=== PATIENT | female | born 1955 | race Caucasian/White ===

== ENCOUNTER → 2022-04-07 | Outpatient (CLI) | payer MEDICARE | END | disposition home or self-care (01) | LOC: SHCH 10:53 | PROVIDERS: ATTEND Internal Medicine | DX: I11.9 Hypertensive heart disease without heart failure (principal); J45.909 Unspecified asthma, uncomplicated; E03.9 Hypothyroidism, unspecified; F32.A Depression, unspecified; M79.7 Fibromyalgia; Z98.82 Breast implant status | CPT/HCPCS: 93306 ==

== ENCOUNTER 2023-05-05 08:22 | Day surgery (SDC) | payer MEDICARE ==
[2023-05-02 14:53] VITALS: BP 121/44; PULSE 71; RESP 18
[~2023-05-05] VITALS: Ht 165.1 cm; Wt 90.9 kg
[2023-05-05] VITALS (9 sets, daily range): BP systolic 109–140; BP diastolic 53–73; PULSE 75–85; RESP 14–19
[~2023-05-05 08:22] MED LIST: 0.9%NACL 1000ML 1,000 ML IV ONE; CELE200C PO; DEXL60CA3 PO; DULO60CA64 PO; HYDR25TA PO; LISI10TA24 PO; METO-409 PO; PREG150C47 PO; RIZA-5 SL; TRAM50TA4 PO
[2023-05-05] MEDS ORDERED: SEMA0.253 SQ (11:40)
[2023-05-05] MEDS ORDERED: PROPOFOL 10 MG/ML 20ML VIAL IV ONE (12:33)
[2023-05-05] MEDS ORDERED: LIDOCAINE PF 100MG/5ML (2%) SYRINGE 5ML ONE (12:34)
== END 2023-05-05 13:55 | disposition home or self-care (01) ==
LOC: ENDO 08:22 → DAH 08:22 → ENDO 13:55
PROVIDERS: ATTEND Internal Medicine Gastroenterology
DX: Z12.11 Encounter for screening for malignant neoplasm of colon (principal); K57.30 Diverticulosis of large intestine without perforation or abscess without bleeding; M79.7 Fibromyalgia; E03.9 Hypothyroidism, unspecified; K21.9 Gastro-esophageal reflux disease without esophagitis; F41.9 Anxiety disorder, unspecified; F32.A Depression, unspecified; I10 Essential (primary) hypertension; E66.9 Obesity, unspecified; Z90.49 Acquired absence of other specified parts of digestive tract; Z98.890 Other specified postprocedural states; Z79.899 Other long term (current) drug therapy; Z68.33 Body mass index [BMI] 33.0-33.9, adult; Z72.89 Other problems related to lifestyle
CPT/HCPCS: 82948 ×2; J7030 ×2; J2001; J2704; A4620; G0121; A4215 ×2; A4223; A7002; A4222; A4221; A4663; A4606; 45378; J3490

== ENCOUNTER → 2024-01-30 | Outpatient (CLI) | payer MEDICARE ==
[~2024-01-30] MED LIST changes: -0.9%NACL 1000ML 1,000 ML IV ONE; -CELE200C PO; +CELE200C3 PO; +IOHEXOL 350 MG/ML 100ML INFUS..BTL IV ONE; +SEMA0.253 SQ
== END | disposition home or self-care (01) ==
LOC: RAH 10:52
PROVIDERS: ATTEND Student in an Organized Health Care Education/Training Program
DX: R07.9 Chest pain, unspecified (principal); M47.815 Spondylosis without myelopathy or radiculopathy, thoracolumbar region; Z98.82 Breast implant status
CPT/HCPCS: 75574; Q9967

== ENCOUNTER → 2024-01-30 | Outpatient (CLI) | payer MEDICARE ==
[~2024-01-30] MED LIST changes: -IOHEXOL 350 MG/ML 100ML INFUS..BTL IV ONE
[2024-01-30 12:13] LABS: CHOLESTEROL 144 mg/dL (<200); HDL CHOLESTEROL 55 mg/dL (35-85); LDL DIRECT 71 mg/dL (0-99); TRIGLYCERIDES 219 mg/dL (30-200)
== END | disposition home or self-care (01) ==
LOC: LAB 09:15
PROVIDERS: ATTEND Student in an Organized Health Care Education/Training Program
DX: I10 Essential (primary) hypertension (principal); E78.5 Hyperlipidemia, unspecified; Z79.899 Other long term (current) drug therapy
CPT/HCPCS: 36415; 80061; 83036